=== PATIENT | female | born 1935 | race Caucasian/White ===

== ENCOUNTER 2017-02-17 07:10 | Outpatient (CLI) | payer MEDICARE | END 2017-02-17 23:59 | DX: I10 Essential (primary) hypertension (principal); E03.9 Hypothyroidism, unspecified ==

== ENCOUNTER 2018-03-13 20:24 | Emergency (ER) | payer MEDICARE, OTHER ==
--- NOTE | 2018-03-13 20:45 | ED Physician Documentation ---
PD HPI CHEST PAIN - Stated complaint Stated Complaint: CHEST DISCOMFORT - Chief complaint Chief Complaint: Cardiac - History obtained from History obtained from: Patient - History of Present Illness Timing - onset: Today Timing - onset during: Rest Timing - details: Gradual onset, Still present Quality: Pressure, Indigestion Location: Substernal Improved by: No: Rest, Oxygen Associated symptoms: No: Shortness of air, Diaphoresis, Nausea Similar symptoms before: No diagnosis Recently seen: Not recently seen - Additional information Additional information: Patient is a 82 year old female with no significant past medical history who is presenting to the emergency department for chest pain. Patient states that the symptoms started earlier today. Patient thought it was indigestion and had been eating tums today but it persisted into this evening so she decided to come get checked out. Patient denies any exertional component. Review of Systems Constitutional: denies: Fever, Chills Eyes: reports: Reviewed and negative Cardiac: reports: Chest pain / pressure, Palpitations. denies: Calf pain Respiratory: denies: Dyspnea, Cough, Wheezing GI: denies: Nausea, Vomiting : reports: Reviewed and negative Skin: denies: Rash, Lesions Musculoskeletal: reports: Back pain. denies: Extremity pain, Joint pain Immunocompromised: denies: Immunocompromised PD PAST MEDICAL HISTORY - Present Medications Home Medications: Ambulatory Orders Medication Instructions Recorded Confirmed Alendronate [Fosamax] 70 mg PO Q7D 03/09/18 03/09/18 Ascorbic Acid [Vitamin C] 1,000 mg PO DAILY 03/09/18 03/09/18 Aspirin 81 mg PO DAILY 03/09/18 03/09/18 Calcium Carbonate/Vitamin D3 2 each PO DAILY 03/09/18 03/09/18 [Calcium 600-Vit D3 500 Softgel] Cholecalciferol (Vitamin D3) 1,000 unit PO DAILY 03/09/18 03/09/18 [Vitamin D3] Cyanocobalamin (Vitamin B-12) 1,000 mcg PO DAILY 03/09/18 03/09/18 [Vitamin B-12] Levothyroxine [Synthroid] 1 tab ORAL DAILY 03/09/18 03/09/18 Lisinopril 1 tab ORAL DAILY 03/09/18 03/09/18 Amlodipine Besylate 10 mg PO DAILY 03/13/18 - Allergies Allergies/Adverse Reactions: Allergies Allergy/AdvReac Type Severity Reaction Status Date / Time No Known Drug Allergies Allergy Verified 03/13/18 20:35 PD ED PE NORMAL - Vitals Vital signs reviewed: Yes - General General: Alert and oriented X 3, No acute distress - HEENT HEENT: Atraumatic - Neck Neck: Supple, no meningeal sign - Cardiac Cardiac: RRR - Respiratory Respiratory: No respiratory distress - Abdomen Abdomen: Soft, Non distended - Derm Derm: Normal color - Extremities Extremities: No deformity - Neuro Neuro: Alert and oriented X 3, No motor deficit, Normal speech Eye Opening: Spontaneous Motor: Obeys Commands Verbal: Oriented GCS Score: 15 - Psych Psych: Normal mood Results - Vitals Vitals: Vital Signs - 24 hr 03/13/18 03/13/18 20:29 22:06 Temperature 36.6 C Heart Rate 87 84 Respiratory 17 18 Rate Blood Pressure 162/79 H 147/68 H O2 Saturation 99 100 Oxygen O2 Source Room air - EKG (time done) 2040 Rate: Rate (enter#) (77) Rhythm: NSR [place]: Normal Intervals: Normal MS Ischemia: Other (borderline ST segment elevation in V2, V3) Compare to prior EKG: Old EKG unavailable 2121 Rate: Rate (enter#) (73) Rhythm: NSR [place]: Normal Intervals: Normal MS QRS: Normal Ischemia: Normal ST segments - Labs Labs: Laboratory Tests 03/13/18 03/13/18 03/13/18 21:30 21:30 21:30 WBC 5.5 RBC 3.60 L Hgb 12.4 Hct 37.3 MCV 103.5 H MCH 34.4 H MCHC 33.3 RDW 13.7 Plt Count 401 MPV 7.0 L Neut # 3.8 Lymph # 1.0 L [place] # 0.6 Eos # 0.0 Baso # 0.0 Absolute Nucleated RBC 0.01 Nucleated RBC % 0.1 Sodium 133 L Potassium 3.7 Chloride 98 L Carbon Dioxide 25 Anion Gap 10.0 BUN 15 Creatinine 0.8 Estimated GFR (MDRD) 68 L Glucose 109 H Calcium 9.5 Total Bilirubin 0.8 AST 27 ALT 17 Alkaline Phosphatase 69 Troponin I < 0.04 B-Natriuretic Peptide Total Protein 7.5 Albumin 4.6 Globulin 2.9 Albumin/Globulin Ratio 1.6 Lipase 23 03/13/18 21:30 WBC RBC Hgb Hct MCV MCH MCHC RDW Plt Count MPV Neut # Lymph # [place] # Eos # Baso # Absolute Nucleated RBC Nucleated RBC % Sodium Potassium Chloride Carbon Dioxide Anion Gap BUN Creatinine Estimated GFR (MDRD) Glucose Calcium Total Bilirubin AST ALT Alkaline Phosphatase Troponin I B-Natriuretic Peptide 21 Total Protein Albumin Globulin Albumin/Globulin Ratio Lipase - Rads (name of study) chest x-ray Radiology: Final report received (no acute abnormalities) PD MEDICAL DECISION MAKING - ED course Complexity details: reviewed old records, reviewed results, re-evaluated patient , considered differential, d/w patient ED course: Patient was seen and examined at bedside. ekg was performed and showed boderline ischemic changes. IV access was gained and labs were drawn. chest x- ray was ordered and patient was treated with aspirin. when patient's diagnostics came back they were within normal limits. Patient was treated with pepcid, maalox and viscous lidocaine. Patient was made aware that she would be appropriate for observation or at least another troponin. Patient stated that she felt ok and would rather go home. Patient had follow up in the morning. Patient was awake, alert and oriented and capable of making decisions. Departure - Departure Disposition: 01 Home, Self Care Clinical Impression: Chest pain Condition: Good Instructions: ED Chest Pain Atypical Unkn Cause Follow-Up: Diana Marroquin DO [Primary Care Provider] - Tomorrow Comments: Your diagnostics today were within normal limits. that being said this is only a snapshot in time and cannot definitively rule out underlying cardiac disease. It is important that you follow up with your doctor tomorrow. I would recommend a stress test and an echocardiogram. You should return to the emergency department for chest pain, shortness of breath, new worsening or uncontrollable symptoms.
[2018-03-13] MEDS ORDERED: ASPIRIN CHEW 81 MG TABLET PO STA (21:30)
--- NOTE | 2018-03-13 21:44 | XRAY Preliminary Report ---
Exam: XR CHEST 2 VIEW X-RAY IMPRESSION: 1. Chronic lung disease. 2. Overlying artifact versus 1 cm sclerotic lesion left humerus. [facility] SITE ID: [id number]
[2018-03-13 21:48] LABS: BASOPHILS % (AUTO) 0.8 %; EOSINOPHILS % (AUTO) 0.5 %; HGB - HEMOGLOBIN 12.4 g/dL (12.0-16.0); LYMPHOCYTES % (AUTO) 17.6 %; MEAN CORPUSCULAR HEMOGLOBIN 34.4 pg (27.0-31.0); MEAN CORPUSCULAR HGB CONC 33.3 g/dL (32.0-36.0); MEAN CORPUSCULAR VOLUME 103.5 fL (81.0-99.0); MONOCYTES # (AUTO) 0.6 10^3/uL (0.0-1.0); MONOCYTES % (AUTO) 11.2 %; NEUTROPHILS # (AUTO) 3.8 10^3/uL (1.5-6.6); NEUTROPHILS % (AUTO) 69.9 %; PLT - PLATELET COUNT 401 10^3/uL (130-450); RED CELL DISTRIBUTION WIDTH 13.7 % (12.0-15.0); WHITE BLOOD COUNT 5.5 x10^3/uL (4.8-10.8)
[2018-03-13 21:49] LABS: ALBUMIN 4.6 g/dL (3.2-5.5); ALBUMIN/GLOBULIN RATIO 1.6 (1.0-2.2); BILIRUBIN,TOTAL 0.8 mg/dL (0.2-1.0); CALCIUM 9.5 mg/dL (8.5-10.3); CREATININE 0.8 mg/dL (0.4-1.0); TOTAL PROTEIN 7.5 g/dL (6.7-8.2)
[2018-03-13] MEDS ORDERED: LIDOCAINE VISCOUS 2% 15 ML UDC MM STA (21:53)
[2018-03-13] MEDS ORDERED: MAG HYDROX/AL HYDROX/SIMETH 30 ML UDC PO STA (21:53)
[2018-03-13] MEDS ORDERED: FAMOTIDINE 20 MG TABLET PO STA (21:53)
--- NOTE | 2018-03-13 21:55 | XRAY Report ---
EXAM: CHEST RADIOGRAPHY EXAM DATE: 03/13/2018 08:54 PM. CLINICAL HISTORY: Chest pain. COMPARISON: None. TECHNIQUE: 2 views. FINDINGS: Lungs/Pleura: Overexpanded. Small calcified pleural plaques. No infiltrate, effusion, vascular conges tion nor pneumothorax. Mediastinum: Heart and mediastinal contours are unremarkable. Other: Several old left rib fractures. 1 cm subcortical sclerotic lesion proximal left humeral diaphysis versus overlying artifact. IMPRESSION: 1. Chronic lung disease. 2. Overlying artifact versus 1 cm sclerotic lesion left humerus. [facility] Referring Provider Line: [phone] SITE ID: [id number]
[2018-03-13 22:07] VITALS: BP 147/68
== END 2018-03-13 22:15 | disposition home or self-care (01) ==
LOC: ED 20:24
DX: R07.9 Chest pain, unspecified (principal)
CPT/HCPCS: 36415; 71046; 80053; 83690; 83880; 84484; 85025; 93005; 99283; 99284; A9270